=== PATIENT | male | born 2000 | race Caucasian/White ===

== ENCOUNTER 2019-04-05 17:46 | Emergency (ER) | payer OTHER ==
[2019-04-05] MEDS ORDERED: Lidocaine 1% with EPINEPHrine 1:100,000 10 ML MDV INFILT ONE (17:47)
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
[2019-04-05] MEDS ORDERED: Diphtheria,Pertussis(Acell),Tetanus Vaccine 0.5 ML SDV IM ONE (18:36)
== END 2019-04-05 20:30 | disposition home or self-care (01) ==
LOC: FB.ED 17:46
DX: S01.01XA Laceration without foreign body of scalp, initial encounter (principal); Z23 Encounter for immunization; V89.2XXA Person injured in unspecified motor-vehicle accident, traffic, initial encounter; Y92.410 Unspecified street and highway as the place of occurrence of the external cause
CPT/HCPCS: 70450; 72125; 81001; 90715; 99284-25